=== PATIENT | male | born 1985 | race Caucasian/White ===

== ENCOUNTER 2017-08-12 15:41 | Emergency (ER) | payer MEDICAID ==
[~2017-08-12 15:41] MED LIST: CEFD300C PO; PERM5CRE TOP; Z.0.NO CURRENT MEDS
[2017-08-12 15:43] VITALS: BP 142/96; PULSE 99; RESP 17; TEMP 99.4; O2SAT 96
--- NOTE | 2017-08-12 16:09 | PD ---
HPI Chief Complaint: Oral / Dental Pain or Problem Time Seen by Provider: 15:54 Travel History International Travel<30 days: No Contact w/Intl Traveler<30days: No Traveled to known affect area: No History of Present Illness HPI 32-year-old male presents to the emergency department complaining of bilateral oral sore pain. Patient states that he has had these lesions for approximate 5 months and has not improved. Patient states that he saw his primary care physician in cardiology and they suspected ulcers versus herpes. Patient was subsequently given lidocaine for the symptom relief. The patient has had multiple fittings for his dentures without success at this point which may have caused these lesions. Patient denies fever or chills. Denies trouble eating or drinking. Mother is concerned about an infectious process. PFSH Past Medical History Blood Disorders: No Heart Rhythm Problems: Yes Cancer: No Cardiovascular Problems: Yes Developmental Delay: Yes Endocrine: No Genitourinary: No Headaches: Yes Musculoskeletal: No Psychiatric: No Social History Alcohol Use: No Tobacco Use: No Substance Use: No Allergies-Medications (Allergen,Severity, Reaction): Coded Allergies: penicillin G (Unverified Allergy, Unknown, 04/29/17) Reported Meds & Prescriptions Reported Meds & Active Scripts Active Magic Mouthwash Pediatric/Adult Liq (Lidocaine/Diphenhydr/Alum/Mg/Simeth) 60 Ml Susp 5 Ml SWISH-SPIT ACHS 10 Days Each 5mL contains: Diphenydramine 4.5mg, Viscous Lidocaine 2% 10mg, Maalox Advanced Regular Strength 2.7ml Omnicef (Cefdinir) 300 Mg Cap 300 Mg PO BID 7 Days Elimite (Permethrin) 5 % Cr 60 Gm TOP DIRECTED PATIENT INSTRUCTIONS: THOROUGHLY MASSAGE ELIMITE (PERMETHRIN) 5% CREAM INTO THE SKIN FROM HEAD TO TOE COVERING ALL EXTERNAL BODY PARTS. THE CREAM SHOULD BE REMOVED BY WASHING (SHOWER OR BATH) 8 TO 14 HOURS AFTER APPLICATION. PATIENTS MAY EXPERIENCE ITCHING AFTER TREATMENT AND IS RARELY A SIGN OF TREATMENT FAILURE. Reported No Current Meds (Miscellaneous Medication[place] [facility] [place] Except as stated in HPI: all other systems reviewed are Neg Physical Exam Narrative GENERAL: Well-nourished, well-developed patient. SKIN: Focused skin assessment warm/dry. HEAD: Normocephalic. EYES: No scleral icterus. No injection or drainage. MOUTH: Mucous membranes moist. Bilateral mid cheeks with a small 5 mm round flesh-colored lesion with central puncta. Nonfriable nonindurated without exudate. Patient denies TTP NECK: Supple, trachea midline. No JVD or lymphadenopathy. CARDIOVASCULAR: Regular rate and rhythm without murmurs, gallops, or rubs. RESPIRATORY: Breath sounds equal bilaterally. No accessory muscle use. MUSCULOSKELETAL: No cyanosis, or edema. BACK: Nontender without obvious deformity. No CVA tenderness. Data Data Last Documented VS Vital Signs Date Time Temp Pulse Resp B/P (MAP) Pulse Ox O2 Delivery O2 Flow Rate FiO2 08/12/17 16:39 08/12/17 15:43 99.4 99 17 96 Room Air Orders Orders Ibuprofen (Motrin) (08/12/17 16:15) Ed Discharge Order (08/12/17 16:09) MDM Medical Decision Making Medical Screen Exam Complete: Yes Emergency Medical Condition: Yes Differential Diagnosis Stomatitis versus herpes stomatitis versus canker sores versus mucoceles Narrative Course 32-year-old male presents to the emergency department complaining of bilateral oral sore pain. Patient states that he has had these lesions for approximate 5 months and has not improved. Patient states that he saw his primary care physician in cardiology and they suspected ulcers versus herpes. Patient was subsequently given lidocaine for the symptom relief. The patient has had multiple fittings for his dentures without success at this point which may have caused these lesions. Mother states he has been receiving viscous lidocaine with very temporary relief. Patient denies fever or chills. Denies trouble eating or drinking. Mother is concerned about an infectious process. Vital Signs stable. Physical exam- mucocele vs stomatitis. Will treat based off of H&P. Treat symptomatically with magic mouthwash. Hold lidocaine. Advised to follow up with a dentist or Ear Nose Throat for further evaluation. Follow up with PCP within 2-3 days. Diagnosis Primary Impression: Stomatitis Referrals: Ear / Nose / Throat Specialist Additional Instructions: Use mouth rinse as prescribed. I recommend follow-up with [employer] for further evaluation of the sores. Follow-up primary care physician within 2-3 days. Scripts Qxjoeectidykild-Fvkiwdqeo-Cjt-Alum-Simeth Liq (Magic Mouthwash Pediatric/Adult Liq) 60 Ml Susp 5 ML SWISH-SPIT ACHS for Mouth sores for 10 Days, #60 ML 0 Refills Each 5mL contains: Diphenydramine 4.5mg, Viscous Lidocaine 2% 10mg, Maalox Advanced Regular Strength 2.7ml Prov: Basil Gilbert MD 08/12/17 Disposition: 01 DISCHARGE HOME Condition: Stable China Mullen Aug 12, 2017 16:08
[2017-08-12] MEDS ORDERED: IBUPROFEN 400 MG TAB PO ONE (16:15)
[2017-08-12] MEDS ORDERED: MAGICPED SWISH-SPIT (16:26)
== END 2017-08-12 16:39 | disposition home or self-care (01) ==
LOC: NEPK 15:41
DX: K12.1 Other forms of stomatitis (principal)
CPT/HCPCS: 99283